=== PATIENT | female | born 1980 | race Caucasian/White ===

== ENCOUNTER → 2018-08-31 | Day surgery (SDC) | payer BC ==
[2018-08-27 11:17] LABS: BASOPHILS # (AUTO) 0.1 (0.0-0.1); EOSINOPHILS # (AUTO) 0.4 (0.0-0.4); EOSINOPHILS % 4.6 % (0.0-6.0); HEMATOCRIT 40.4 % (34.2-44.1); HEMOGLOBIN 13.5 g/dL (12.0-16.0); LYMPHOCYTES # (AUTO) 2.9 (1.0-3.2); LYMPHOCYTES % 35.2 % (18.0-39.1); MEAN CORPUSCULAR HEMOGLOBIN 30.9 pg (28-32); MEAN CORPUSCULAR HGB CONC 33.4 g/dL (31-35); MEAN CORPUSCULAR VOLUME 92.4 fL (81-99); MONOCYTES # (AUTO) 0.6 (0.2-0.8); MONOCYTES % 7.5 % (4.4-11.3); NEUTROPHILS # (AUTO) 4.2 (2.1-6.9); NEUTROPHILS % 51.6 % (38.7-80.0); PLATELET COUNT 339 x10e3/uL (140-360); RED BLOOD COUNT 4.37 x10e6/uL (3.6-5.1); RED CELL DISTRIBUTION WIDTH 12.1 % (11.7-14.4)
--- NOTE | 2018-08-27 11:51 | Diagnostic Imaging Report ---
EXAM: XR CHEST 2 VIEWS DATE: 08/27/2018 10:54 AM INDICATION: Preop, pain, tailors bunion COMPARISON: None FINDINGS: Lines and Tubes: None Heart and Mediastinum: No acute cardiomediastinal findings. Lungs and Pleura: Small nodular opacity left lung base. No pneumothorax. Bones and Soft Tissues: No acute findings. IMPRESSION: 1. Small nodular opacity left lung base could represent atelectasis or focal area of pneumonitis. Correlation with symptoms. Follow-up radiograph four weeks. Signed by: Dr. Petey Gregg MD on 08/27/2018 11:48 AM
[~2018-08-31] MED LIST: ADDERALL 10 MG10 MG PO; BUPIVACAINE HCL 0.5% 10ML MPF VIAL INJ ONE; CEFAZOLIN SOD 2 GM/D5W 50ML 50 ML IV ONE; DEXAMETHASONE SOD PHOS INJ 4 MG/ML VIAL ONE; FENTANYL CITRATE/PF 100MCG/2 ML INJ ONE; LIDOCAINE HCL 2% LOCAL INJ 5 ML SDV VIAL INJ ONE; MIDAZOLAM HCL 2 MG/2 ML VIAL ONE; MUPIROCIN 2% OINT 22 GM TUBE ONE; ONDANSETRON HCL INJ 2 MG/ML VIAL ONE; PROPOFOL IV EMULSION 10 MG/ML 20 ML VIAL ONE; SEVOFLURANE INHAL SOLN 250 ML PEN BTL ONE
--- OUTSIDE RECORDS SUMMARY | 2018-08-31 05:29 | XMS REPORT ---
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 Allergies, Adverse Reactions, Alerts This patient has no known allergies or adverse reactions. Medications This patient has no known medications. Results Test Description Test Time Test Comments Text Results Atomic Results Result Comments CHEST 2 VIEWS 2018-08-27 11:47:00 [place] [address] Patient Name: SOCRATES LYN MR #: [id number] : 1980 Age/Sex: 38/F Req #: [id number] Adm Physician: Ordered by: NADEEN ALAN DPM Report #: [id number] Location: OR Room/Bed: Procedure: [id number] DX/CHEST 2 VIEWS Exam Date: Exam Time: REPORT STATUS: Signed EXAM: XR CHEST 2 VIEWS DATE: 08/27/2018 10:54 AM INDICATION: Preop, pain, tailors bunion COMPARISON: None FINDINGS: Lines and Tubes: None Heart and Mediastinum: No acute cardiomediastinal findings. Lungs and Pleura: Small nodular opacity left lung base. No pneumothorax. Bones and Soft Tissues: No acute findings. IMPRESSION: 1. Small nodular opacity left lung base could represent atelectasis or focal area of pneumonitis. Correlation with symptoms. Follow-up radiograph four weeks. Signed by: Dr. Petey Mena MD on 08/27/2018 11:48 AM Dictated By: PETEY MENA MD [id number] Transcribed By: SHWETA on 08/27/18 1148 COPY TO: NADEEN ALAN DPM
--- OUTSIDE RECORDS SUMMARY | 2018-08-31 05:29 | XMS REPORT ---
Author Author Admin, [place] [facility] Address [address] [place] [address] Phone Allergies, Adverse Reactions, Alerts Allergy Name Reaction Description Start Date Severity Status Provider CODEINE itching Critical Active Devante Mares MD Conditions or Problems Problem Name Problem Code Onset Date Status Entry Date Provider Comment Standard Description Annotate ADHD, PREDOMINANTLY INATTENTIVE PRESENTATION, MILD Active Devante Mares MD Attention deficit disorder of childhood without mention of hyperactivity INSOMNIA DISORDER, EPISODIC Active Devante Mares MD Insomnia, unspecified ADJUSTMENT DISORDER, W/ MIXED ANXIETY AND DEPRESSED MOOD Active Devante Mares MD Adjustment disorder with mixed disturbance of emotions and conduct Medication List Medication Instructions Start Date Stop Date Generic Name NDC Status Provider Patient Instruction ADDERALL XR 20 MG ORAL CAPSULE EXTENDED RELEASE 24 HOUR Take 1 capsule by mouth daily. AMPHETAMINE-DEXTROAMPHETAMINE 62564029047 Active Devante Mares MD Active PROZAC 20 MG ORAL CAPSULE Take 1 capsule by mouth daily. FLUOXETINE HCL 37816820683 Active Devante Mares MD Active TRAZODONE HCL 50 MG ORAL TABLET Take 1/2-1 tablet at bedtime only as needed for sleep. TRAZODONE HCL 08776823310 Active Devante Mares MD Active ADDERALL XR 10 MG ORAL CAPSULE EXTENDED RELEASE 24 HOUR Take 1 capsule by mouth daily. ADDERALL XR 10 MG ORAL CAPSULE EXTENDED RELEASE 24 HOUR AMPHETAMINE-DEXTROAMPHETAMINE Inactive PROZAC 10 MG ORAL CAPSULE Take 1 capsule by mouth daily. PROZAC 10 MG ORAL CAPSULE [id number] FLUOXETINE HCL Inactive ADDERALL XR 10 MG ORAL CAPSULE EXTENDED RELEASE 24 HOUR Take 1 capsule by mouth daily. AMPHETAMINE-DEXTROAMPHETAMINE [id number] No Longer Active Devante Mares MD Active PROZAC 10 MG ORAL CAPSULE Take 1 capsule by mouth daily. FLUOXETINE HCL 91261032046 No Longer Active Devante Mares MD Active Vital Signs Date Name Value Unit Range Description blood pressure, diastolic 70 mm[Hg] BP bower blood pressure, systolic 117 mm[Hg] BP sys height E&M 62 [in_us] Bdy height pulse rate E&M 83 /min Heart rate weight E&M 156.80 [lb_av] Weight Measured blood pressure, diastolic 69 mm[Hg] BP bower blood pressure, systolic 112 mm[Hg] BP sys height E&M 62 [in_us] Bdy height pulse rate E&M 74 /min Heart rate weight E&M 157.70 [lb_av] Weight Measured blood pressure, diastolic 77 mm[Hg] BP bower blood pressure, systolic 128 mm[Hg] BP sys height E&M 62 [in_us] Bdy height pulse rate E&M 77 /min Heart rate weight E&M 152.40 [lb_av] Weight Measured blood pressure, diastolic 70 mm[Hg] BP bower blood pressure, systolic 116 mm[Hg] BP sys height E&M 62 [in_us] Bdy height pulse rate E&M 68 /min Heart rate weight E&M 152.20 [lb_av] Weight Measured blood pressure, diastolic 66 mm[Hg] BP bower blood pressure, systolic 105 mm[Hg] BP sys height E&M 62 [in_us] Bdy height pulse rate E&M 89 /min Heart rate weight E&M 151.80 [lb_av] Weight Measured Encounters Date Encounter Provider Code Facility 08:53:57 CDT Est Patient Exp Problem - 09325 Devante Mares MD CPT-37193 [facility] 08:21:35 CDT Est Patient Exp Problem - 88654 Devante Mares MD CPT-34056 [facility] 08:48:17 CDT Est Patient Exp Problem - 12354 Devante Mares MD CPT-13400 [facility] 09:30:57 CDT Est Patient Exp Problem - 00892 Devante Mares MD CPT-37330 [facility] Procedures Code Procedure Name Date Entry Date Standard Description CPT-05811 Psychotherapy 45 (38-52*) min - 52165 (with patient and/or family member) 10:10:40 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
[2018-08-31 08:38] VITALS: BP 115/68
--- NOTE | 2018-09-03 19:22 | Operative Report ---
DATE OF PROCEDURE: August 31, 2018 PREOPERATIVE DIAGNOSIS: Tailor's bunion right foot. POSTOPERATIVE DIAGNOSIS: Tailor's bunion right foot. TITLE OF OPERATION: A modified tailor's bunionectomy of the right foot. ANESTHESIA: General endotracheal. HEMOSTASIS: A right thigh tourniquet at 350 mmHg. PROCEDURE IN DETAIL: The patient was taken to the operating room in a mildly sedated state and placed upon the operating table in supine position. Following the induction of general anesthetic, the right lower extremity was elevated to 60 degrees to exsanguinate before inflating the pneumatic thigh tourniquet to 350 mmHg to create hemostasis. The right lower extremity was placed upon the operating table prior to performing the following procedure. Procedure number 1 is a tailor's bunionectomy of the right foot. An approximately 6 cm dorsal linear incision was made across the dorsomedial aspect of the 5th metatarsophalangeal joint of the right foot. The incision was deepened via sharp and blunt dissection down to the level of the dorsal capsular structure. Care was taken to identify and retract all vital structures encountered. The head of the 5th metatarsal was delivered into the surgical site and remodeled utilizing an oscillating saw and rotary bur. The area was irrigated with copious amounts of sterile saline solution. Deep closure was 3-0 Vicryl, subcutaneous closure was 4-0 Vicryl and skin closure was 4-0 nylon. The areas of surgery were then blocked with 0.5 Marcaine and Decadron [place]. Release of the pneumatic thigh tourniquet showed a normal hyperemic flush to all digits of the right foot, and the patient left the operating room with vital signs stable, in apparent satisfactory condition, having tolerated both the anesthetic and procedure very well. Job#: [id number]
== END | disposition home or self-care (01) ==
LOC: OR 05:27
PROVIDERS: ATTEND Podiatrist Foot Surgery
DX: M21.621 Bunionette of right foot (principal); Z01.810 Encounter for preprocedural cardiovascular examination; Z01.812 Encounter for preprocedural laboratory examination; Z01.818 Encounter for other preprocedural examination; Z88.5 Allergy status to narcotic agent
CPT/HCPCS: 28110; 36415; 71046; 76000; 84702; 85025; 93005; J0690; J1100; J2001; J2250; J2405; J2704